=== PATIENT | male | born 1980 | race Two or more races ===

== ENCOUNTER 2022-01-11 13:47 | Outpatient (CLI) | payer BC, SELFPAY ==
[2022-01-11 14:57] LABS: Alanine Aminotransferase* 30 U/L (4-50); Cholesterol* 295 mg/dL (90-199); HDL Cholesterol* 40 mg/dL (>=40); LDL Cholesterol Calculated 198 mg/dL (<100); Triglycerides* 287 mg/dL (40-149)
== END 2022-01-11 13:48 | disposition home or self-care (01) ==
PROVIDERS: PCP Family Medicine; Visit Provider Family Medicine
DX: E78.00 Pure hypercholesterolemia, unspecified (principal)
CPT/HCPCS: 80061; 84460

== ENCOUNTER 2022-04-18 15:36 | Outpatient (CLI) | payer BC, SELFPAY ==
[2022-04-18 14:53] LABS: Alanine Aminotransferase* 38 U/L (4-50); Cholesterol* 166 mg/dL (90-199); HDL Cholesterol* 46 mg/dL (>=40); LDL Cholesterol Calculated 97 mg/dL (<100); Triglycerides* 116 mg/dL (40-149)
== END 2022-04-18 15:37 | disposition home or self-care (01) ==
PROVIDERS: PCP Family Medicine; Visit Provider Family Medicine
DX: E78.00 Pure hypercholesterolemia, unspecified (principal)
CPT/HCPCS: 80061; 84460

== ENCOUNTER 2023-03-05 19:43 | Outpatient (CLI) | payer OTHER, SELFPAY ==
--- NOTE | 2023-03-12 09:16 | W.PM.SLEEP ---
Sleep Study Details Details Interpreting Provider: Ancelmo Date of Sleep Study: 03/05/23 Sleep Study Details: STUDY TYPE:? Home unattended ? BMI:? 38.4 ORDERING PROVIDER:? Aysha INDICATION:? Concerns about sleep apnea ? SLEEP SUMMARY:? 441 minutes monitored RESPIRATORY SUMMARY:? AHI 36.4, supine 5.9, prone 12.6, left lateral 54.7, right lateral 32.8 Low oxygen 83 6.7% of study oxygen less than 90% Snoring 32.2% PERIODIC LIMB MOVEMENTS OF SLEEP:? Not recorded during home study CARDIAC:? Range 49-94, mean 61.5 beats per minute IMPRESSION:? Severe obstructive sleep apnea RECOMMENDATION: Weight loss is recommended. AutoSet CPAP pressure 4-18.
== END 2023-03-05 19:44 | disposition home or self-care (01) ==
LOC: SLEEP 19:44
PROVIDERS: PCP Family Medicine; Visit Provider Family Medicine
DX: G47.33 Obstructive sleep apnea (adult) (pediatric) (principal)
CPT/HCPCS: 95806

== ENCOUNTER 2023-05-13 15:39 | Outpatient (CLI) | payer OTHER, SELFPAY | END 2023-05-13 15:40 | disposition home or self-care (01) | PROVIDERS: PCP Family Medicine; Visit Provider Family Medicine | DX: E78.00 Pure hypercholesterolemia, unspecified (principal); I10 Essential (primary) hypertension; E66.9 Obesity, unspecified; R73.03 Prediabetes | CPT/HCPCS: 80053; 80061; 84443 ==

== ENCOUNTER 2024-04-22 17:11 | Outpatient (CLI) | payer BC, SELFPAY | END 2024-04-22 17:12 | disposition home or self-care (01) | LOC: NFLDREF 04-29 00:48 | PROVIDERS: PCP Family Medicine; Referring Provider Family Medicine; Visit Provider Family Medicine | DX: J02.9 Acute pharyngitis, unspecified (principal); L30.9 Dermatitis, unspecified | CPT/HCPCS: 87651 ==

== ENCOUNTER 2024-05-23 15:31 | Emergency (ER) | payer BC, SELFPAY ==
[2024-05-23 15:49] VITALS: BP 145/83; PULSE 65; RESP 16; TEMP 36.4; O2SAT 96; BMI 38.4
--- NOTE | 2024-05-23 17:05 | ED.GENADULT ---
HPI - General Adult General Chief complaint: Dental/Oral/Mouth Injury/Pain Stated complaint: tooth pain Time Seen by Provider: 05/23/24 17:00 Source: patient Mode of arrival: ambulatory Limitations: no limitations History of Present Illness HPI narrative: 43-year-old male presenting today with tooth pain that has been present for 3-4 days. Pain is located on the lower jaw in the center. Patient states that he has had issues with that tooth before, has been told that did tooth is dying. Has not had troubles for over year. He states that the area feels warm. Keeps him up at night. Denies any systemic symptoms. Can not get into the dentist Until June. Related Data Home Medications ?Medication ?Instructions ?Recorded ?Confirmed clobetasol 0.05 % topical cream 1 applic topical BID PRN 04/22/24 Previous Rx's ?Medication ?Instructions ?Recorded losartan 25 mg tablet 25 mg PO QDAY #30 tabs 05/13/24 rosuvastatin 10 mg tablet 10 mg PO QDAY #30 tabs 05/13/24 amoxicillin 875 mg-potassium 1 tab PO BID 7 days #14 tabs 05/23/24 clavulanate 125 mg tablet ketorolac 10 mg tablet 10 mg PO TID 5 days #15 tabs 05/23/24 Allergies Allergy/AdvReac Type Severity Reaction Status Date / Time No Known Allergies Allergy Unknown Verified 04/22/24 16:57 Review of Systems Status of ROS: Reports: 6 or more systems reviewed and unremarkable except as noted in History and below [facility] Medical History Eczema ?L30.9 - Dermatitis, unspecified (ICD-10) Sleep apnea ?G47.30 - Sleep apnea, unspecified (ICD-10) Daytime somnolence ?R40.0 - Somnolence (ICD-10) Hypercholesterolemia ?E78.00 - Pure hypercholesterolemia, unspecified (ICD-10) Prediabetes ?R73.03 - Prediabetes (ICD-10) Surgical History H/O hernia repair (11/1978) ?Z98.890 - Other specified postprocedural states (ICD-10) ?Z87.19 - Personal history of other diseases of the digestive system (ICD-10) Family History Paternal Grandmother Diabetes Father Stroke Kidney disease Heart disease Social History Smoking Status: Former smoker What tobacco products do you use: cigarettes Smoking quit date/years: <= 15 years ago Do you use any of these nicotine containing products: None Second hand tobacco smoke exposure: No Are you now , , , , never or living with a partner: Social isolation score (0-1 are the most socially isolated patients): 1 Exam Narrative: Exam Narrative: Well-nourished well-developed patient in no acute distress. Alert and oriented. Answers questions appropriately. Mood and affect are appropriate. Thoughts are goal oriented and rational. No tangential or magical thinking noted. Patient speaks in full sentences without needing to catch his breath. voice sounds normal. Voice is not congested. HEENT: Normocephalic atraumatic. Pupils are equally round reactive to light. Extraocular muscles are intact. Conjunctivae are moist without any icterus noted. Moist mucous membranes. Posterior pharynx is normal. Neck is soft without any lymphadenopathy or thyromegaly. No masses are appreciated. Lips are normal. Tongue appears normal. Teeth have normal appearance. He has tenderness with pressure over the central incisor, number 25 the gums underneath the area are red and tender. There are no areas of fluctuance, no obvious abscess formation. Area underneath the tongue appears normal. Skin: Well perfused without any obvious rashes. Const: Vital Signs, click to edit/add: Vital Signs - 24 hr 05/23/24 15:49 Temperature 97.5 F L Pulse Rate [Pulse Oximeter] 65 Respiratory Rate 16 Blood Pressure [Ri ght Upper Arm] 145/83 H Pulse Oximetry 96 Oxygen Delivery Me thod Room Air Course Vital Signs Vital signs: Initial Vital Signs Temperature 97.5 F L 05/23/24 15:49 Temperature Source Temporal Artery Scan 05/23/24 15:49 Pulse Rate 65 05/23/24 15:49 Respiratory Rate 16 05/23/24 15:49 Blood Pressure 145/83 H 05/23/24 15:49 Blood Pressure Mean 103 05/23/24 15:49 Blood Pressure Position Sitting 05/23/24 15:49 Pulse Oximetry 96 05/23/24 15:49 Oxygen Delivery Method Room Air 05/23/24 15:49 Vital Signs Temperature 97.5 F L 05/23/24 15:49 Pulse Rate 65 05/23/24 15:49 Respiratory Rate 16 05/23/24 15:49 Blood Pressure 145/83 H 05/23/24 15:49 Pulse Oximetry 96 05/23/24 15:49 Oxygen Delivery Method Room Air 05/23/24 15:49 Temperature 97.5 F L 05/23/24 15:49 Pulse Rate 65 05/23/24 15:49 Respiratory Rate 16 05/23/24 15:49 Blood Pressure 145/83 H 05/23/24 15:49 Pulse Oximetry 96 05/23/24 15:49 Oxygen Delivery Method Room Air 05/23/24 15:49 Medical Decision Making MDM Narrative Medical decision making narrative: [age] Male with toothache, appears to be beginning evidence of infection. will treat with Augmentin Toradol. patient is encouraged to call different dentist to see if he can get in sooner. Discharge Plan Discharge Clinical Impression: Toothache Patient Disposition: Home, Self-Care Condition: Stable Prescriptions: New amoxicillin-pot clavulanate 875-125 mg tablet 1 tab PO BID 7 Days Qty: 14 0RF ketorolac 10 mg tablet 10 mg PO TID 5 Days Qty: 15 0RF No Action clobetasol 0.05 % cream 1 applic topical BID PRN losartan 25 mg tablet 25 mg PO QDAY Qty: 30 0RF rosuvastatin 10 mg tablet 10 mg PO QDAY Qty: 30 0RF Follow Up/Referrals: Errol Olmstead MD [Primary Care Provider] - Stand Alone [facility]
[2024-05-23 17:39] VITALS: BP 126/93; PULSE 64; RESP 16; O2SAT 98
== END 2024-05-23 17:41 | disposition home or self-care (01) ==
LOC: ED 17:12
PROVIDERS: Emergency Provider Family Medicine; PCP Family Medicine
DX: K08.89 Other specified disorders of teeth and supporting structures (principal)
CPT/HCPCS: 99283

== ENCOUNTER 2024-06-01 09:42 | Outpatient (CLI) | payer BC, SELFPAY | END 2024-06-01 09:43 | disposition home or self-care (01) | PROVIDERS: PCP Family Medicine; Visit Provider Family Medicine | DX: I10 Essential (primary) hypertension (principal); E78.00 Pure hypercholesterolemia, unspecified | CPT/HCPCS: 80048; 80061 ==

== ENCOUNTER 2025-01-27 07:44 | Outpatient (CLI) | payer BC, SELFPAY | END 2025-01-27 07:45 | disposition home or self-care (01) | LOC: NFLDREF 02-02 12:35 | PROVIDERS: PCP Family Medicine; Referring Provider Family Medicine; Visit Provider Family Medicine | DX: Z00.00 Encounter for general adult medical examination without abnormal findings (principal); Z13.6 Encounter for screening for cardiovascular disorders | CPT/HCPCS: 80053; 80061 ==

== ENCOUNTER 2025-01-29 14:38 | Outpatient (CLI) | payer BC, SELFPAY | END 2025-01-29 14:39 | disposition home or self-care (01) | LOC: NFLDREF 02-03 19:04 | PROVIDERS: PCP Family Medicine; Referring Provider Family Medicine; Visit Provider Family Medicine | DX: Z13.29 Encounter for screening for other suspected endocrine disorder (principal) | CPT/HCPCS: 84443 ==